=== PATIENT | female | born 1990 | race Hispanic/Latino ===

== ENCOUNTER 2018-04-01 15:02 | Inpatient (IN) | payer BC, OTHER ==
[2018-04-02] MEDS ORDERED: Ringers Lactate 1,000 ML IV PRN (03:20)
[2018-04-02] MEDS ORDERED: CARBOPROST TROME 250 MCG/ML IM PRN (03:25)
[2018-04-02] MEDS ORDERED: METHYLERGONOVINE 0.2MG/ML AMP IM PRN (03:25)
[2018-04-02 03:53] LABS: Urine Appearance CLEAR; Urine Bilirubin NEGATIVE (NEG); Urine Blood NEGATIVE (NEG); Urine Color YELLOW; Urine Glucose NEGATIVE (NEG); Urine Protein NEGATIVE (NEG); Urine Specific Gravity <=1.005 (1.005-1.030); Urine Urobilinogen 0.2 mg/dL (0.2-1.0); Urine pH 6.5 (5.0-7.0)
[2018-04-02] MEDS ORDERED: CEFAZOLIN 2 GM in NA CHLORIDE 0.9% 100 ML IVPB SCH (04:00)
[2018-04-02 04:01] LABS: Urine Microscopic Reflex NO UMIC
[2018-04-02 04:11] VITALS: BMI 35.5
[2018-04-02] MEDS ORDERED: Ringers Lactate 1,000 ML IV SCH (04:20)
[2018-04-02] MEDS ORDERED: BUTORPHANOL 1 MG/ML INJ IV ONE (04:51)
[2018-04-02] MEDS ORDERED: NA CIT/CITRIC AC 30 ML ORAL UDC PO ONE (06:00)
[2018-04-02] MEDS ORDERED: FAMOTIDINE 20 MG/2 ML VIAL IV ONE (06:00)
[2018-04-02] MEDS ORDERED: METOCLOPRAMIDE 10 MG/2mL INJ IV SCH (06:00)
[2018-04-02] MEDS ORDERED: CEFAZOLIN/SWI 2gm 2 GM/20 ML SYR ONE (06:51)
[2018-04-02] MEDS ORDERED: MORPHINE SULFATE/PF 1 MG/ML (10 ML AMP) ONE (07:22)
[2018-04-02] MEDS ORDERED: BUPIVACAINE 0.75% (PF) 2 ML SP ONE (07:22)
[2018-04-02] MEDS ORDERED: FENTANYL CITR 250 MCG/5 ML ONE (07:23)
[2018-04-02] MEDS ORDERED: LIDOCAINE 1% MPF 5 ML VIAL ONE (07:28)
[2018-04-02] MEDS ORDERED: OXYTOCIN 10 UNIT/ML ML IV ONE ×2 (07:30)
[2018-04-02] MEDS ORDERED: NS 0.9% VIAL 10 ML ONE (07:48)
[2018-04-02] MEDS ORDERED: Phenylephrine HCl 10 MG/ML 1 ML VIAL ONE (07:48)
[2018-04-02] MEDS ORDERED: BISACODYL 10 MG RECTAL SUPP RECT PRN (08:17)
[2018-04-02] MEDS ORDERED: ONDANSETRON 4 MG/2 ML VIAL IV PRN (08:17)
[2018-04-02] MEDS ORDERED: KETOROLAC 30 MG/ML INJ IM PRN (08:17)
[2018-04-02] MEDS ORDERED: Oxycodone HCl/Acetaminophen 1 TAB TAB PO PRN (08:17)
[2018-04-02] MEDS ORDERED: ONDANSETRON 4 MG (ODT) TAB PO PRN (08:17)
[2018-04-02] MEDS ORDERED: ACETAMINOPHEN 500 MG TAB PO PRN ×2 (08:17)
[2018-04-02] MEDS ORDERED: DIPHENHYDRAMINE 25 MG TAB/CAP PO PRN (08:17)
[2018-04-02] MEDS ORDERED: KETOROLAC 30 MG/ML INJ IV PRN (08:17)
[2018-04-02] MEDS: OXYTOCIN/LR 20 UNIT/1,000 ML BAG IV SCH ×2 (10:55→18:27)
[2018-04-02] MEDS ORDERED: CEFAZOLIN/SWI 2gm 2 GM/20 ML SYR IV ONE (16:00)
[2018-04-03] MEDS: IBUPROFEN 200 MG TAB PO PRN ×3 (07:16→20:48)
[2018-04-03] MEDS ORDERED: MAGNESIUM HYDROXIDE 8% 30 ML PO PRN (08:17)
[2018-04-03] MEDS: Oxycodone HCl/Acetaminophen 1 TAB TAB PO PRN ×3 (14:05→22:46)
[2018-04-04] MEDS: IBUPROFEN 200 MG TAB PO PRN (08:24)
[2018-04-04 08:35] VITALS: BP 115/66; TEMP 97.7
[2018-04-04] MEDS: Oxycodone HCl/Acetaminophen 1 TAB TAB PO PRN (09:45)
--- NOTE | 2018-04-05 04:58 | DS ---
Date of Discharge: 04/04/2018 Hospital Course: Yokasta Fish 28-year-old primigravida, 40 weeks 2 days, primary section lo w transverse cervical on maternal request, suspected macrosomia and full discussion prior to admissio n about options including vaginal delivery. Baby weighed 8 pounds 5 ounces. Apgars 9 and 9. Straig ht occiput posterior with nuchal cord. Spinal block anesthesia. 900 cc blood loss. Mild . Ancef 2 g preop and 8 hours postop 2 more grams for prophylaxis. Rh positive, immune to Rubella. Positive beta strep screen. Postoperatively afebrile, ambulating and voiding. Lochia is normal. W ill be dismissed later this morning. To report back to my office next week for followup. To report any temperature elevation of 100 degrees or greater, severe pain, heavy bleeding, or any other type o f abnormalities. Dismissed with tramadol for analgesia. She has had her Tdap and flu shots. No pos t spinal block problems. Final Diagnoses: Intrauterine gestation, 40 weeks 2 days, maternal request for section, odette pected macrosomia. Occiput posterior, nuchal cord. Mild uterine . Positive beta st rep screen prior to delivery. JAGDEEP/JOSE ALEJANDRO Voice ID: [id number] Report ID: [id number]
--- NOTE | 2018-04-10 12:12 | PREOPHP ---
Date of Admission: 04/02/2018 History Of Present Illness: Yokasta Fish is a 28-year-old primigravida, 40 weeks 2 days, with suspec gino macrosomia, although ultrasound demonstrated baby they said was 8 pounds, 11 ounces plus or minus 1 pound, 5 ounces. Unfavorable cervix. Vertex presenting. Patient requested sectio n. Full preoperative counseling concerning procedure and possible complications including infection, blood loss, anesthetic complications, injury to bladder, bowel, ureter, postoperative complications, clots in the legs, and pneumonia. The patient knows that if she has a she probably will bullock ve further cesareans in the future and this could result in complications. Patient also knows that t he ability of ultrasound to adequately and correctly predict weight could vary as much as 1 pound and 5 ounces as stated. Family History: Noncontributory. Allergies: SHE HAS NO ALLERGIES. Physical Examination: HEENT: Clear. Pupils equal, round, and reactive to light and accommodation. Conjunctivae well perf used. No oral, lingual, or buccal lesions. Chest and Lungs: Clear. Heart: Without murmurs, thrills, heaves, or rubs. Extremities: Clear without edema, cyanosis, or clubbing. : Cervix unfavorable. Estimated weight by my clinical exam was 8.5 pounds plus or minus 1 pound. The patient request ed and we will proceed. JAGDEEP/JOSE ALEJANDRO Voice ID: [id number]
--- NOTE | 2018-04-10 18:29 | OP ---
Surgeon: Jericho Aponte MD Indications: A 28-year-old primigravida, 40 weeks 2 days, suspected macrosomia. Although, pat ient knew that the ability of ultrasound correctly estimated weight could vary by as much as 1 pound 5 ounces. Baby thought to be about 8 pounds 11 ounces by ultrasound. Slightly smaller by my clinica l estimate. Full preoperative counseling concerning procedure and infection, blood loss, anesthetic complications, injury to bladder, bowel, ureter, postop complications, clots in legs, and pneumonia. The patient knows fully well this does not constitute all the possible problems that could occur dur ing or following surgery. Procedure: Spinal block anesthesia was performed. Timeout was performed. The patient was prepped a nd draped. Pfannenstiel incision was created. Incision was carried to the fascia. The fascia was i ncised and incision carried transversely bilaterally. Anterior fascial plane was developed with both blunt and sharp dissection. The underlying rectus muscle was . The perineum entered blunt ly. Low-transverse uterine incision created. An 8 pound 5 ounce baby girl was delivered without dif ficulties. Apgars 9 and 9. Straight occiput posterior with the nuchal cord. The placenta removed m anually. Uterus cleared of clot and blood and exteriorized. Cervical os was dilated with ring clamp . Uterus closed with a running-locked stitch of 1 chromic followed by 1-2 [id number] stitches a long the suture line for complete hemostasis. Estimated blood loss 900 cc. Mild uterine hypotonus, 0.2 mg of Methergine IM. The patient had been given 2 g of Ancef preoperatively. After cleaning the gutters, the uterus was reinspected, no further bleeding was seen. The muscles were reapproximated using interrupted sutures of 0 Vicryl. The fascia was closed with 1 Vicryl running from either angle to the midline. Subcutaneous tissue was closed with 2-0 plain running stitch. Absorbable ryan p laced and then metal ryan. The patient tolerated all procedures well. She was transferred back t o her room in good condition. Final Diagnoses: Term intrauterine 40 weeks 2 days, suspected macrosomia. Maternal request a section. Spinal block anesthesia. Mild uterine hypotonus. NBC/MODL Voice ID: [id number] Report ID: [id number]
--- NOTE | 2018-04-15 09:11 | PREOPHP ---
Date of Admission: 04/02/2018 History and physical, says it has not been dictated, it has; operative report, says it has not been d ictated, it has. It might be under the wrong numbers, but please look at the reports and the things that had been dictated and corrected because I have done both the requested. JAGDEEP/JOSE ALEJANDRO Voice ID: [id number]
== END 2018-04-04 10:40 | disposition home or self-care (01) | DRG 788 ==
LOC: 2ND-WC 04-02 03:12
PROVIDERS: ADMIT Specialist; ATTEND Specialist
PROC: 10D00Z1 Extraction of Products of Conception, Low, Open Approach (ICD-10-PCS; principal; 2018-04-02 07:30)
DX: O99.824 Streptococcus B carrier state complicating childbirth (principal); O69.81X0 Labor and delivery complicated by cord around neck, without compression, not applicable or unspecified; O62.2 Other uterine inertia; Z3A.40 40 weeks gestation of pregnancy; Z37.0 Single live birth; Z23 Encounter for immunization
CPT/HCPCS: 36415; 76805; 81003; 85014; 85025; 85610; 85730; 86850; 86900; 86901; 88307; 99218; J0595; J0690; J2210; J2370; J2405; J2590; J2765; J3010

== ENCOUNTER 2018-07-10 15:09 | Emergency (ER) | payer BC, OTHER ==
--- OUTSIDE RECORDS SUMMARY | 2018-07-10 15:13 | XMS REPORT ---
:1990 [facility] Address [address] [place] [address] Dr. Hoover [address] [place] [id number] Care Team Providers Name Role Phone Unavailable Unavailable Unavailable Problems This patient has no known problems. Allergies, Adverse Reactions, Alerts This patient has no known allergies or adverse reactions. Medications This patient has no known medications.
--- NOTE | 2018-07-10 16:15 | EDPHYS ---
Physician Documentation [facility] Name: Yokasta Fish Age: 28 yrs Sex: Female : 1990 Arrival Date: 07/10/2018 Time: 15:11 Bed 27 Private MD: Alexandre Ramirez T ED Physician Marcio Lacy HPI: 07/10 17:09 This 28 yrs old Female presents to ER via Ambulatory with complaints of jr8 Swollen Breast. 17:09 Onset: The symptoms/episode began/occurred acutely, today. Associated signs and jr8 symptoms: Pertinent positives: pain. Modifying factors: The patient symptoms are alleviated by nothing, the patient symptoms are aggravated by movement, stimulation. The patient has not experienced similar symptoms in the past. The patient has not recently seen a physician. Patient currently pumping. Has 12 week old child. Started to have swollen breast early this morning that has worsened throughout the day. Tender to touch and to pump. No purulent or bloody nipple discharge . 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 - Social history:: Smoking status: Patient/guardian denies using tobacco. - Ebola Screening: : Patient denies travel to an Ebola-affected area in the 21 days before illness onset. ROS: 17:09 Eyes: Negative for injury, pain, redness, and discharge, ENT: Negative for injury, jr8 pain, and discharge, Neck: Negative for injury, pain, and swelling, Cardiovascular: Negative for chest pain, palpitations, and edema, Respiratory: Negative for shortness of breath, cough, wheezing, and pleuritic chest pain, Abdomen/GI: Negative for abdominal pain, nausea, vomiting, diarrhea, and constipation, Back: Negative for injury and pain, MS/Extremity: Negative for injury and deformity, Skin: Negative for injury, rash, and discoloration, Neuro: Negative for headache, weakness, numbness, tingling, and seizure. Exam: 17:09 Eyes: Pupils equal round and reactive to light, extra-ocular motions intact. Lids and jr8 lashes normal. Conjunctiva and sclera are non-icteric and not injected. Cornea within normal limits. Periorbital areas with no swelling, redness, or edema. ENT: Nares patent. No nasal discharge, no septal abnormalities noted. Tympanic membranes are normal and external auditory canals are clear. Oropharynx with no redness, swelling, or masses, exudates, or evidence of obstruction, uvula midline. Mucous membranes moist. Neck: Trachea midline, no thyromegaly or masses palpated, and no cervical lymphadenopathy. Supple, full range of motion without nuchal rigidity, or vertebral point tenderness. No Meningismus. Cardiovascular: Regular rate and rhythm with a normal S1 and S2. No gallops, murmurs, or rubs. Normal PMI, no JVD. No pulse deficits. Respiratory: Lungs have equal breath sounds bilaterally, clear to auscultation and percussion. No rales, rhonchi or wheezes noted. No increased work of breathing, no retractions or nasal flaring. Abdomen/GI: Soft, non-tender, with normal bowel sounds. No distension or tympany. No guarding or rebound. No evidence of tenderness throughout. Back: No spinal tenderness. No costovertebral tenderness. Full range of motion. Skin: Warm, dry with normal turgor. Normal color with no rashes, no lesions, and no evidence of cellulitis. MS/ Extremity: Pulses equal, no cyanosis. Neurovascular intact. Full, normal range of motion. Neuro: Awake and alert, GCS 15, oriented to person, place, time, and situation. Cranial nerves II-XII grossly intact. Motor strength 5/5 in all extremities. Sensory grossly intact. Cerebellar exam normal. Normal gait. 17:09 Chest/axilla: Inspection: normal, Palpation: is normal, Axilla: are normal, no abscess, no cellulitis, no mass, no palpable nodes, no rash, Breasts: right breast larger then left. Tender from the 7 o'clock to 11 o'clock position of breast with increased breast tissue density. No active nipple discharge when squeezed. No erythema or areola abnormality . Vital Signs: 15:30 BP 99 / 72; Pulse 117; Resp 18; Temp 97.2(TE); Pulse Ox 97% on R/A; Weight 73.48 kg tw2 (R); Height 5 ft. 1 in. (154.94 cm); Pain 8/10; 16:15 BP 101 / 70; Pulse 112; Resp 19; Pulse Ox 98% on R/A; ca1 15:30 Body Mass Index 30.61 (73.48 kg, 154.94 cm) tw2 MDM: 15:47 Patient medically screened. jr8 16:13 Data reviewed: vital signs, nurses notes, and as a result, I will discharge patient. jr8 Data interpreted: Pulse oximetry: on room air is 97 %. Interpretation: normal. Counseling: I had a detailed discussion with the patient and/or guardian regarding: the historical points, exam findings, and any diagnostic results supporting the discharge/admit diagnosis, the need for outpatient follow up, an OB/Gyne specialist, to return to the emergency department if symptoms worsen or persist or if there are any questions or concerns that arise at home. 17:09 ED course: Discussed with patient diagnosis of clogged mild ducts vs. early mastitis. jr8 That I want her to continue to pump. Warm compress as needed. Will start on antibiotics. Need to f/u with human projectile . Administered Medications: No medications were administered Disposition: 07/11 08:03 Co-signature as Attending Physician, Marcio Lacy MD I agree with the assessment and kdr plan of care. Disposition: 07/10/18 16:15 Discharged to Home. Impression: Nonpurulent mastitis associated with . - Condition is Stable. - Discharge Instructions: Challenges and Solutions, Mastitis, and Mastitis. - Prescriptions for Augmentin 875- 125 mg Oral Tablet - take 1 tablet by ORAL route every 12 hours for 10 days; 20 tablet. - Medication Reconciliation Form, Thank You Letter, Antibiotic Education, Prescription Opioid Use form. - Follow up: Private Physician; When: 2 - 3 days; Reason: Recheck today's complaints, Continuance of care, Re-evaluation by your physician. - Problem is new. - Symptoms have improved. Signatures: Marcio Lacy MD MD [facility] Breezy Jauregui PA PA jr8 Shelia Reed RN RN tw2 Tri Cooper RN RN ca1 Corrections: (The following items were deleted from the chart) 07/10 16:34 16:15 07/10/2018 16:15 Discharged to Home. Impression: Nonpurulent mastitis associated ca1 with . Condition is Stable. Forms are Medication Reconciliation Form, Thank You Letter, Antibiotic Education, Prescription Opioid Use. Follow up: Private Physician; When: 2 - 3 days; Reason: Recheck today's complaints, Continuance of care, Re-evaluation by your physician. Problem is new. Symptoms have improved. jr8
--- NOTE | 2018-07-10 16:15 | ER ---
Nurse's Notes [facility] Name: Yokasta Fish Age: 28 yrs Sex: Female : 1990 Arrival Date: 07/10/2018 Time: 15:11 Bed 27 Private MD: Alexandre Ramirez T Diagnosis: Nonpurulent mastitis associated with Presentation: 07/10 15:31 Presenting complaint: Patient states: about 2 am my RIGHT breast started hurting, i am tw2 pumping and i tried to squeezed it to get some milk out but on the outside it is not letting the milk out. Transition of care: patient was not received from another setting of care. Onset of symptoms was July 10, 2018. Risk Assessment: Do you want to hurt yourself or someone else? Patient reports no desire to harm self or others. Initial Sepsis Screen: Does the patient meet any 2 criteria? No. Patient's initial sepsis screen is negative. Does the patient have a suspected source of infection? No. Patient's initial sepsis screen is negative. Care prior to arrival: None. 15:31 Method Of Arrival: Ambulatory tw2 15:31 Acuity: CANDE 4 tw2 Triage Assessment: 15:33 General: Appears in no apparent distress. well groomed, Behavior is calm, cooperative, tw2 appropriate for age. Pain: Complains of pain in right breast. 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 - Social history:: Smoking status: Patient/guardian denies using tobacco. - Ebola Screening: : Patient denies travel to an Ebola-affected area in the 21 days before illness onset. Screenin:40 Abuse screen: Denies threats or abuse. Denies injuries from another. Nutritional ca1 screening: No deficits noted. Tuberculosis screening: No symptoms or risk factors identified. Fall Risk None identified. Assessment: 15:40 General: Appears in no apparent distress. comfortable, Behavior is calm, cooperative, ca1 appropriate for age. Pain: Complains of pain in anterior aspect of right upper chest and right breast Pain does not radiate. Pain currently is 5 out of 10 on a pain scale. Pain began 1 day ago. Neuro: Level of Consciousness is awake, alert, obeys commands, Oriented to person, place, time, situation. Cardiovascular: Heart tones S1 S2 present Capillary refill < 3 seconds Patient's skin is warm and dry. Respiratory: Airway is patent Respiratory effort is even, unlabored, Respiratory pattern is regular, symmetrical, Breath sounds are clear bilaterally. GI: No signs and/or symptoms were reported involving the gastrointestinal system. : No signs and/or symptoms were reported regarding the genitourinary system. EENT: No signs and/or symptoms were reported regarding the EENT system. Derm: Skin is intact, is healthy with good turgor, Skin is pink, warm \T\ dry. Musculoskeletal: Circulation, motion, and sensation intact. Capillary refill < 3 seconds. 16:00 Reassessment: Patient appears in no apparent distress at this time. Patient is alert, ca1 oriented x 3, equal unlabored respirations, skin warm/dry/pink. MARQUEZ Haro with me at bedside perform PE on breast. Vital Signs: 15:30 BP 99 / 72; Pulse 117; Resp 18; Temp 97.2(TE); Pulse Ox 97% on R/A; Weight 73.48 kg tw2 (R); Height 5 ft. 1 in. (154.94 cm); Pain 8/10; 16:15 BP 101 / 70; Pulse 112; Resp 19; Pulse Ox 98% on R/A; ca1 15:30 Body Mass Index 30.61 (73.48 kg, 154.94 cm) tw2 ED Course: 15:11 Patient arrived in ED. dl4 15:11 Alexandre Ramirez MD is Private Physician. dl4 15:32 Triage completed. tw2 15:32 Arm band placed on. tw2 15:35 [facility]reezy Jauregui [facility]. jr8 15:35 Marcio Lacy MD is Attending Physician. jr8 15:40 Patient has correct armband on for positive identification. Placed in gown. Bed in low ca1 position. Call light in reach. Pulse ox on. NIBP on. 15:40 No provider procedures requiring assistance completed. Patient did not have IV access ca1 during this emergency room visit. 15:48 Umer Greer, RN is Primary Nurse. sg Administered Medications: No medications were administered Outcome: 16:15 Discharge ordered by . valarie 16:33 Discharged to home ambulatory, with family. ca1 16:33 Condition: stable 16:33 Discharge instructions given to patient, Instructed on discharge instructions, follow up and referral plans. medication usage, Demonstrated understanding of instructions, follow-up care, medications, Prescriptions given X 1. 16:34 Patient left the ED. ca1 Signatures: Umer Greer RN RN Breezy Boo PA PA jr8 Shelia Reed RN RN tw2 Alexandre Moreno dl4 Tri Cooper RN RN ca1 Corrections: (The following items were deleted from the chart) 16:33 16:32 Reassessment: Patient appears in no apparent distress at this time. Patient is ca1 alert, oriented x 3, equal unlabored respirations, skin warm/dry/pink. MARQUEZ Haro with me at bedside perform PE on breast. ca1
[2018-07-10 16:38] VITALS: TEMP 97.2
[2018-07-10 16:39] VITALS: BP 101/70; O2SAT 98
== END 2018-07-10 16:34 | disposition home or self-care (01) ==
LOC: ER 15:09
DX: O91.23 Nonpurulent mastitis associated with lactation (principal)
CPT/HCPCS: 99283

== ENCOUNTER 2019-05-21 08:55 | Emergency (ER) | payer OTHER, SELFPAY ==
--- OUTSIDE RECORDS SUMMARY | 2019-05-21 08:57 | XMS REPORT ---
:1990 [facility] Address [address] [place] [address] Dr. Hoover [address] [place] [id number] Care Team Providers Name Role Phone Unavailable Unavailable Unavailable Problems This patient has no known problems. Allergies, Adverse Reactions, Alerts This patient has no known allergies or adverse reactions. Medications This patient has no known medications.
--- NOTE | 2019-05-21 11:26 | ER ---
Nurse's Notes [facility] Name: Yokasta Fish Age: 29 yrs Sex: Female : 1990 Arrival Date: 05/21/2019 Time: 08:58 Bed 14 Private MD: Diagnosis: Acute pharyngitis;Malaise and fatigue Presentation: 05/21 09:09 Presenting complaint: Patient states: Fatigue, body aches and sore throat that began ss yesterday. Transition of care: patient was not received from another setting of care. Onset of symptoms was May 20, 2019. Risk Assessment: Do you want to hurt yourself or someone else? Patient reports no desire to harm self or others. Initial Sepsis Screen: Does the patient meet any 2 criteria? No. Patient's initial sepsis screen is negative. Does the patient have a suspected source of infection? No. Patient's initial sepsis screen is negative. Care prior to arrival: None. 09:09 Acuity: CANDE 4 ss 09:09 Method Of Arrival: Ambulatory ss Triage Assessment: 09:10 General: Appears in no apparent distress. comfortable, Behavior is cooperative, bp appropriate for age, anxious. Pain: Denies pain. EENT: Reports pain when swallowing. Neuro: No deficits noted. Cardiovascular: Rhythm is sinus tachycardia. Respiratory: No deficits noted. GI: Reports nausea. : No signs and/or symptoms were reported regarding the genitourinary system. Derm: No deficits noted. Musculoskeletal: No deficits noted. Historical: - Allergies: 09:17 No Known Allergies; ss - Home Meds: 09:17 None [Active]; ss - PMHx: 09:17 Ovarian cyst; ss - Immunization history:: Adult Immunizations up to date. - Social history:: Smoking status: Patient/guardian denies using tobacco. - Ebola Screening: : Patient denies exposure to infectious person Patient denies travel to an Ebola-affected area in the 21 days before illness onset. Screenin:03 Abuse screen: Denies threats or abuse. Denies injuries from another. Nutritional bp screening: No deficits noted. Tuberculosis screening: No symptoms or risk factors identified. Fall Risk None identified. Assessment: 09:10 General: SEE TRIAGE NOTE. GI: Abdomen is non-distended. bp 10:33 Reassessment: NO ACUTE DISTRESS, VS STABLE ON MONITOR. RESULTS PENDING. bp 12:14 Reassessment: PT D/C HOME AMBULATORY WITH FAMILY, DX WITH VIRAL PHARYNGITIS. bp Vital Signs: 09:17 BP 118 / 67; Pulse 110; Resp 18; Temp 98.1(TE); Pulse Ox 98% on R/A; Weight 77.11 kg; Height 5 ft. 1 in. (154.94 cm); Pain 7/10; 10:33 BP 99 / 65; Pulse 92; Resp 16; Pulse Ox 98% ; bp 12:00 BP 107 / 69; Pulse 89; Resp 17; Temp 98.5; Pulse Ox 99% ; bp 09:17 Body Mass Index 32.12 (77.11 kg, 154.94 cm) ED Course: 08:58 Patient arrived in ED. ag5 09:03 Windy Farrar FNP-C is [facility]. snw 09:03 Rayray Bang MD is Attending Physician. snw 09:14 Antonino Mendes, RN is Primary Nurse. bp 09:17 Triage completed. ss 09:17 Arm band placed on right wrist. ss 09:57 Flu and/or RSV swab sent to lab. Strep swab sent to lab. ca1 10:03 Patient has correct armband on for positive identification. Bed in low position. Call bp light in reach. Side rails up X2. 12:15 No provider procedures requiring assistance completed. Patient did not have IV access bp during this emergency room visit. Administered Medications: No medications were administered Outcome: 11:25 Discharge ordered by . snw 12:15 Discharged to home ambulatory, with family. bp 12:15 Condition: stable 12:15 Discharge instructions given to patient, Instructed on discharge instructions, follow up and referral plans. medication usage, Demonstrated understanding of instructions, follow-up care, medications, Prescriptions given X 1. 12:16 Patient left the ED. bp Signatures: Windy Farrar FNP-C OFFICE MACHINE SERVICE SUPERVISOR-[employer] Lissette Munoz RN RN Antonino Mendes, Tri Lewis RN, RN RN ca1 [place], Ajare ag5
--- NOTE | 2019-05-21 11:26 | EDPHYS ---
Physician Documentation [facility] Name: Yokasta Fish Age: 29 yrs Sex: Female : 1990 Arrival Date: 05/21/2019 Time: 08:58 Bed 14 Private MD: ED Physician Rayray Bang HPI: 05/21 10:00 This 29 yrs old Female presents to ER via Ambulatory with complaints of snw Nausea, Sore Throat, General Weakness. 10:01 The patient or guardian reports flu symptoms, arthralgias, low-grade fever, myalgias, snw no appetite. Onset: The symptoms/episode began/occurred suddenly, yesterday. Modifying factors: The symptoms are alleviated by nothing. Associated signs and symptoms: Pertinent positives: sore throat. Severity of symptoms: At their worst the symptoms were moderate. The patient has not experienced similar symptoms in the past. The patient has not recently seen a physician. pt states she doesn't get periods. Historical: - Allergies: 09:17 No Known Allergies; ss - Home Meds: 09:17 None [Active]; ss - PMHx: 09:17 Ovarian cyst; ss - Immunization history:: Adult Immunizations up to date. - Social history:: Smoking status: Patient/guardian denies using tobacco. - Ebola Screening: : Patient denies exposure to infectious person Patient denies travel to an Ebola-affected area in the 21 days before illness onset. ROS: 09:57 Eyes: Negative for injury, pain, redness, and discharge, ENT: Negative for injury and snw discharge, sore throat Neck: Negative for injury, pain, and swelling. 09:57 Cardiovascular: Negative for chest pain, palpitations, and edema, Respiratory: Negative for shortness of breath, cough, wheezing, and pleuritic chest pain, Abdomen/GI: Negative for abdominal pain, nausea, vomiting, diarrhea, and constipation, Back: Negative for injury and pain, : Negative for injury, bleeding, discharge, and swelling, MS/Extremity: Negative for injury and deformity, Skin: Negative for injury, rash, and discoloration, Neuro: Negative for headache, weakness, numbness, tingling, and seizure. 09:57 Constitutional: Positive for body aches, fatigue, malaise. Exam: 09:45 Head/Face: Normocephalic, atraumatic. Eyes: Pupils equal round and reactive to light, snw extra-ocular motions intact. Lids and lashes normal. Conjunctiva and sclera are non-icteric and not injected. Cornea within normal limits. Periorbital areas with no swelling, redness, or edema. ENT: Nares patent. No nasal discharge, no septal abnormalities noted. Tympanic membranes are normal and external auditory canals are clear. Oropharynx with no redness, swelling, or masses, exudates, or evidence of obstruction, uvula midline. Mucous membranes moist. 09:45 Chest/axilla: Normal chest wall appearance and motion. Nontender with no deformity. No lesions are appreciated. 09:45 Respiratory: Lungs have equal breath sounds bilaterally, clear to auscultation and percussion. No rales, rhonchi or wheezes noted. No increased work of breathing, no retractions or nasal flaring. Abdomen/GI: Soft, non-tender, with normal bowel sounds. No distension or tympany. No guarding or rebound. No evidence of tenderness throughout. Back: No spinal tenderness. No costovertebral tenderness. Full range of motion. Skin: Warm, dry with normal turgor. Normal color with no rashes, no lesions, and no evidence of cellulitis. MS/ Extremity: Pulses equal, no cyanosis. Neurovascular intact. Full, normal range of motion. Neuro: Awake and alert, GCS 15, oriented to person, place, time, and situation. Cranial nerves II-XII grossly intact. Motor strength 5/5 in all extremities. Sensory grossly intact. Cerebellar exam normal. Normal gait. Psych: Awake, alert, with orientation to person, place and time. Behavior, mood, and affect are within normal limits. 09:45 Constitutional: The patient appears alert, awake, uncomfortable. 09:45 Neck: External neck: is normal, Thyroid: appears normal, Trachea: is midline with no obvious abnormalities, ROM/movement: is normal, Lymph nodes: lymphadenopathy is appreciated, anterior cervical nodes. 09:45 Cardiovascular: Rate: tachycardic. Vital Signs: 09:17 BP 118 / 67; Pulse 110; Resp 18; Temp 98.1(TE); Pulse Ox 98% on R/A; Weight 77.11 kg; ss Height 5 ft. 1 in. (154.94 cm); Pain 7/10; 10:33 BP 99 / 65; Pulse 92; Resp 16; Pulse Ox 98% ; bp 12:00 BP 107 / 69; Pulse 89; Resp 17; Temp 98.5; Pulse Ox 99% ; bp 09:17 Body Mass Index 32.12 (77.11 kg, 154.94 cm) ss MDM: 09:03 Patient medically screened. [facility] 11:26 Data reviewed: vital signs, nurses notes. Data interpreted: Pulse oximetry: on room air snw is 98 %. Interpretation: normal. Counseling: I had a detailed discussion with the patient and/or guardian regarding: the historical points, exam findings, and any diagnostic results supporting the discharge/admit diagnosis, lab results, the need for outpatient follow up, to return to the emergency department if symptoms worsen or persist or if there are any questions or concerns that arise at home. Special discussion: Based on the history and exam findings, there is no indication for further emergent testing or inpatient evaluation. I discussed with the patient/guardian the need to see the primary care provider for further evaluation of the symptoms. 05/21 09:39 Order name: Flu; Complete Time: 11:24 snw 05/21 09:39 Order name: Strep; Complete Time: 11:24 snw 05/21 10:59 Order name: Throat Culture EDMS Administered Medications: No medications were administered Disposition: 16:43 Co-signature as Attending Physician, Rayray Bang MD I agree with the assessment and [facility] plan of care. Disposition: 05/21/19 11:25 Discharged to Home. Impression: Acute pharyngitis, Malaise and fatigue. - Condition is Stable. - Discharge Instructions: Fever, Adult, Pharyngitis, Fatigue, Rehydration, Adult. - Prescriptions for promethazine 25 mg Oral Tablet - take 1 tablet by ORAL route every 6 hours As needed; 20 tablet. - Work release form, Family Work Release, Medication Reconciliation Form, Thank You Letter, Antibiotic Education, Prescription Opioid Use form. - Follow up: Private Physician; When: 2 - 3 days; Reason: Recheck today's complaints, Continuance of care, Re-evaluation by your physician. Follow up: Emergency Department; When: As needed; Reason: Worsening of condition. Signatures: Dispatcher [employer] Rayray Phoenix MD MD cha Therrien, Shelly, COMMUNITY DEVELOPMENT AIDE-C COMMUNITY DEVELOPMENT AIDE-Csnw Lissette Munoz, RN RN ss Antonino Mendes, RN RN bp Corrections: (The following items were deleted from the chart) 10:01 10:00 The patient presents to the emergency department with snw snw 12:16 11:25 05/21/2019 11:25 Discharged to Home. Impression: Acute pharyngitis; Malaise and bp fatigue. Condition is Stable. Forms are Medication Reconciliation Form, Thank You Letter, Antibiotic Education, Prescription Opioid Use. Follow up: Private Physician; When: 2 - 3 days; Reason: Recheck today's complaints, Continuance of care, Re-evaluation by your physician. Follow up: Emergency Department; When: As needed; Reason: Worsening of condition. snw
[2019-05-21 12:33] VITALS: BP 107/69; TEMP 98.5; O2SAT 99
== END 2019-05-21 12:16 | disposition home or self-care (01) ==
LOC: ER 08:55
DX: J02.9 Acute pharyngitis, unspecified (principal); R53.81 Other malaise; R53.83 Other fatigue
CPT/HCPCS: 87070; 87081; 87804; 99284

== ENCOUNTER 2020-08-10 20:32 | Emergency (ER) | payer SELFPAY ==
--- OUTSIDE RECORDS SUMMARY | 2020-08-10 20:35 | XMS REPORT | Continuity of Care Document ---
:1990 Author Organization Formerly [facility] t Address [address] [place] [address] Care Team Providers Name Role Phone Devan Herrera DO Attending Clinician Claude Richardson Attending Clinician Problems This patient has no known problems. Allergies, Adverse Reactions, Alerts This patient has no known allergies or adverse reactions. Medications This patient has no known medications. Procedures This patient has no known procedures. Encounters Start End Encounter Admission Attending Care Care Encounter Source Date/Time Date/Time Type Type Clinicians Facility Department ID 2020-07-27 2020-07-27 Patient ELISEO Herrera [id number] 00:00:00 00:00:00 Outreach [facility] [id number] Devan [facility] [id number] [place] [id number] 2020-04-08 2020-04-08 Telephone ELISEO Prieto [id number] 00:00:00 00:00:00 Steve Arce RESPIRATORY CARE SPECIALIST [id number] [facility] [id number] MATERNAL [id number] & CHILD [address] [place] [address] Results This patient has no known results.
[2020-08-10 21:28] LABS: Absolute Lymphocytes (CBC) 1.3 K/uL (0.7-4.9); Basophils % 0.4 % (0-1.3); Hematocrit 40.5 % (36.0-45.0); Lymphocytes % 9.5 % (15.3-44.8); MPV 9.8 fL (7.6-11.3); RBC Red Blood Cell Count 4.78 M/uL (3.86-4.86)
[2020-08-10 21:30] LABS: Urine Blood Negative (Negative); Urine Glucose Negative (Negative); Urine Protein Negative (Negative); Urine Specific Gravity >=1.030 (1.005-1.030)
[2020-08-10] MEDS ORDERED: ONDANSETRON 4 MG/2 ML VIAL ONE ×2 (21:33→23:15)
[2020-08-10] MEDS ORDERED: NA CHLORIDE 0.9% 1,000 ML ONE ×2 (21:33→23:16)
[2020-08-10] MEDS ORDERED: MORPHINE 4 MG/ML SYR ONE (21:33)
[2020-08-10 21:43] LABS: ALT/SGPT 24 U/L (12-78); AST/SGOT 17 U/L (15-37); Albumin 4.3 g/dL (3.4-5.0); Alkaline Phosphatase 107 U/L (45-117); BUN Blood Urea Nitrogen 14 mg/dL (7-18); Bicarbonate 26 mmol/L (21-32); Bilirubin Direct < 0.1 mg/dL (0-0.2); Bilirubin Total 0.3 mg/dL (0.2-1.0); Glucose Level 95 mg/dL (74-106); Lipase 87 U/L (73-393); Potassium 3.5 mmol/L (3.5-5.1); Protein, Total 8.5 g/dL (6.4-8.2); Sodium Level 139 mmol/L (136-145)
[2020-08-10 21:53] LABS: Urine Amorphous Sediment 1+ /HPF (NONE SEEN); Urine Bacteria 20-50 /HPF (<20); Urine Mucus 3+ /HPF (NONE SEEN); Urine RBC <5 /HPF (NONE SEEN)
[2020-08-10 21:54] LABS: Urine Specific Gravity/Preg >1.030 (1.005-1.030)
[2020-08-10 22:10] LABS: SARS-COV-2 RT PCR NEGATIVE (NEGATIVE)
[2020-08-10] MEDS ORDERED: DICYCLOMINE HCL 10 MG CAP ONE (23:15)
[2020-08-10] MEDS ORDERED: CEFTRIAXONE/SWI 1gm 1 GM/10 ML SYR ONE (23:28)
--- NOTE | 2020-08-10 23:45 | ER ---
Nurse's Notes [facility] Name: Yokasta Fish Age: 30 yrs Sex: Female : 1990 Arrival Date: 08/10/2020 Time: 20:36 Bed 4 Private MD: Diagnosis: Urinary tract infection, site not specified;Nausea and vomiting;Diarrhea, unspecified;Dehydration Presentation: 08/10 20:39 Chief complaint: Patient states: N/V/D with abdominal cramping for 1 day. No known ll1 fever. Coronavirus screen: Client denies travel out of the [place] in the last 14 days. diarrhea, fatigue, headache, nausea, vomiting. Client presents with at least one sign or symptom that may indicate coronavirus-19. Standard/surgical mask placed on the client. Ebola Screen: Patient denies travel to an Ebola-affected area in the 21 days before illness onset. Initial Sepsis Screen: Does the patient meet any 2 criteria? HR > 90 bpm. No. Patient's initial sepsis screen is negative. Does the patient have a suspected source of infection? Yes: Acute abdominal pain. Risk Assessment: Do you want to hurt yourself or someone else? Patient reports no desire to harm self or others. Onset of symptoms was August 10, 2020. 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 - Social history:: Smoking status: Patient denies any tobacco usage or history of. Screenin:06 Abuse screen: Denies threats or abuse. Denies injuries from another. Nutritional mg2 screening: No deficits noted. Tuberculosis screening: No symptoms or risk factors identified. Fall Risk IV access (20 points). Assessment: 21:06 General: Appears in no apparent distress. comfortable, Behavior is calm, cooperative. mg2 Pain: Complains of pain in abdomen Quality of pain is described as crampy. Neuro: Level of Consciousness is awake, alert, obeys commands, Oriented to person, place, time, situation. Cardiovascular: Capillary refill < 3 seconds Patient's skin is warm and dry. Respiratory: Airway is patent Respiratory effort is even, unlabored, Respiratory pattern is regular, symmetrical. GI: Reports cramping, nausea, vomiting. EENT: No signs and/or symptoms were reported regarding the EENT system. Derm: Skin is intact, is healthy with good turgor, Skin is pink, warm \T\ dry. normal. Musculoskeletal: Circulation, motion, and sensation intact. Capillary refill < 3 seconds. Vital Signs: 20:39 BP 113 / 70; Pulse 125; Resp 17; Temp 97.1; Pulse Ox 100% ; Weight 77.11 kg; Height 5 ll1 ft. 1 in. (154.94 cm); Pain 9/10; 22:37 BP 102 / 78; Pulse 98; Resp 18; Pulse Ox 100% on R/A; mg2 23:57 BP 110 / 60; Pulse 89; Resp 18; Temp 98; Pulse Ox 100% on R/A; mg2 20:39 Body Mass Index 32.12 (77.11 kg, 154.94 cm) ll1 ED Course: 20:36 Patient arrived in ED. am4 20:41 Triage completed. ll1 20:41 Arm band placed on. ll1 20:58 Miki Ibarra, HERB is PHCP. pm1 20:58 Rayray Bang MD is Attending Physician. pm1 21:06 Brandon Parisi, IDA is Primary Nurse. mg2 21:06 No provider procedures requiring assistance completed. mg2 21:07 Patient has correct armband on for positive identification. mg2 21:10 Inserted saline lock: 22 gauge in right antecubital area, using aseptic technique. mg2 Blood collected. 22:17 CT Abd/Pelvis - IV Contrast Only In Process Unspecified. EDMS 23:57 IV discontinued, intact, bleeding controlled, No redness/swelling at site. Pressure mg2 dressing applied. Administered Medications: 21:19 Drug: Zofran (Ondansetron) 4 mg Route: IVP; Site: right antecubital; mg2 22:38 Follow up: Response: No adverse reaction mg2 21:19 Drug: morphine 4 mg Route: IVP; Site: right antecubital; mg2 22:37 Follow up: Response: No adverse reaction mg2 21:20 Drug: NS 0.9% 1000 ml Route: IV; Rate: 1000 ml; Site: right antecubital; mg2 22:38 Follow up: Response: No adverse reaction; IV Status: Completed infusion; IV Intake: mg2 1000ml 23:01 Drug: Bentyl (dicyclomine) 20 mg Route: PO; 23:56 Follow up: Response: No adverse reaction mg2 23:03 Drug: NS 0.9% 1000 ml Route: IV; Rate: 1000 ml; Site: right antecubital; 23:56 Follow up: Response: No adverse reaction; IV Status: Completed infusion; IV Intake: mg2 1000ml 23:05 Drug: Zofran (Ondansetron) 4 mg Route: IVP; Site: right antecubital; 23:56 Follow up: Response: No adverse reaction mg2 23:13 Drug: Rocephin (cefTRIAXone) 1 grams Route: IV; Rate: calculated rate; Site: right antecubital; 23:56 Follow up: Response: No adverse reaction; IV Status: Completed infusion mg2 Intake: 22:38 IV: 1000ml; Total: 1000ml. mg2 23:56 IV: 1000ml; Total: 2000ml. mg2 Outcome: 23:44 Discharge ordered by . pm1 23:57 Discharged to home ambulatory, with family. mg2 23:57 Condition: stable 23:57 Discharge instructions given to patient, Instructed on discharge instructions, follow up and referral plans. medication usage, Demonstrated understanding of instructions, follow-up care, medications, Prescriptions given X 3. 23:58 Patient left the ED. mg2 Signatures: Dispatcher [employer] EDMS Miki Ibarra NP CLAIM INVESTIGATOR pm1 Esvin An RN RN Brandon Parisi RN RN [facility] Soha Haq RN RN [facility] Genie Bell am4 Corrections: (The following items were deleted from the chart) 22:38 22:37 Pulse 98bpm; Resp 18bpm; Pulse Ox 100% RA; mg2 mg2
--- NOTE | 2020-08-10 23:45 | EDPHYS ---
Physician Documentation [facility] Name: Yokasta Fish Age: 30 yrs Sex: Female : 1990 Arrival Date: 08/10/2020 Time: 20:36 Bed 4 Private MD: JUAREZ Physician Rayray Bang HPI: 08/10 22:09 This 30 yrs old Female presents to ER via Ambulatory with complaints of pm1 Nausea/Vomiting/Diarrhea, Weakness. 22:09 The patient presents to the emergency department with nausea, vomiting, diarrhea, pm1 abdominal pain. Onset: The symptoms/episode began/occurred today. Possible causes: unknown. The symptoms are aggravated by food , The symptoms are alleviated by nothing. Associated signs and symptoms: Pertinent positives: fever, cough, shortness of breath. Severity of symptoms: in the emergency department the symptoms have improved. The patient has not experienced similar symptoms in the past. The patient has not recently seen a physician. 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 - Social history:: Smoking status: Patient denies any tobacco usage or history of. ROS: 22:09 Eyes: Negative for injury, pain, redness, and discharge, ENT: Negative for injury, pm1 pain, and discharge, Neck: Negative for injury, pain, and swelling, Cardiovascular: Negative for chest pain, palpitations, and edema, Respiratory: Negative for shortness of breath, cough, wheezing, and pleuritic chest pain. 22:09 Back: Negative for injury and pain, : Negative for injury, bleeding, discharge, and swelling, MS/Extremity: Negative for injury and deformity, Skin: Negative for injury, rash, and discoloration, Neuro: Negative for headache, weakness, numbness, tingling, and seizure. 22:09 Constitutional: Positive for body aches, generalized weakness. 22:09 Abdomen/GI: Positive for abdominal pain, nausea, vomiting, and diarrhea. Exam: 22:09 Constitutional: This is a well developed, well nourished patient who is awake, alert, pm1 and in no acute distress. Head/Face: Normocephalic, atraumatic. Chest/axilla: Normal chest wall appearance and motion. Nontender with no deformity. No lesions are appreciated. Respiratory: Lungs have equal breath sounds bilaterally, clear to auscultation and percussion. No rales, rhonchi or wheezes noted. No increased work of breathing, no retractions or nasal flaring. 22:09 Back: No spinal tenderness. No costovertebral tenderness. Full range of motion. Skin: Warm, dry with normal turgor. Normal color with no rashes, no lesions, and no evidence of cellulitis. 22:09 MS/ Extremity: Pulses equal, no cyanosis. Neurovascular intact. Full, normal range of motion. 22:09 Cardiovascular: Rate: tachycardic, Rhythm: regular, Pulses: no pulse deficits are appreciated. 22:09 Abdomen/GI: Inspection: abdomen appears normal, Palpation: soft, in all quadrants, mild abdominal tenderness, in the left lower quadrant. 22:09 Neuro: Exam negative for acute changes, Orientation: is normal, Mentation: is normal, Motor: is normal, moves all fours. Vital Signs: 20:39 BP 113 / 70; Pulse 125; Resp 17; Temp 97.1; Pulse Ox 100% ; Weight 77.11 kg; Height 5 ll1 ft. 1 in. (154.94 cm); Pain 9/10; 22:37 BP 102 / 78; Pulse 98; Resp 18; Pulse Ox 100% on R/A; mg2 23:57 BP 110 / 60; Pulse 89; Resp 18; Temp 98; Pulse Ox 100% on R/A; mg2 20:39 Body Mass Index 32.12 (77.11 kg, 154.94 cm) ll1 MDM: 21:03 Patient medically screened. pm1 23:43 Data reviewed: vital signs. Data interpreted: Pulse oximetry: on room air is 100 %. pm1 Interpretation: normal. Counseling: I had a detailed discussion with the patient and/or guardian regarding: the historical points, exam findings, and any diagnostic results supporting the discharge/admit diagnosis, lab results, radiology results, the need for outpatient follow up, to return to the emergency department if symptoms worsen or persist or if there are any questions or concerns that arise at home. 08/10 21:06 Order name: Basic Metabolic Panel; Complete Time: 22:11 mg2 08/10 21:06 Order name: CBC with Diff; Complete Time: 21:37 mg2 08/10 21:06 Order name: Hepatic Function; Complete Time: 22:11 mg2 08/10 21:06 Order name: Lipase; Complete Time: 22:11 mg2 08/10 21:07 Order name: Urine Microscopic Only; Complete Time: 22:11 pm1 08/10 21:07 Order name: CT Abd/Pelvis - IV Contrast Only pm1 08/10 21:30 Order name: Urine Dipstick-Ancillary; Complete Time: 21:37 EDMS 08/10 21:30 Order name: Urine --Ancillary (enter results); Complete Time: 22:11 mw2 08/10 21:54 Order name: Urine Culture EDMS 08/10 22:11 Order name: COVID-19/FLU A+B; Complete Time: 22:49 EDMS 08/10 21:06 Order name: IV Saline Lock; Complete Time: 21:20 mg2 08/10 21:06 Order name: Labs collected and sent; Complete Time: 21:20 mg2 08/10 21:06 Order name: Urine Dipstick-Ancillary (obtain specimen); Complete Time: 21:20 mg2 08/10 21:06 Order name: Urine Test (obtain specimen); Complete Time: 21:20 mg2 Administered Medications: 21:19 Drug: Zofran (Ondansetron) 4 mg Route: IVP; Site: right antecubital; mg2 22:38 Follow up: Response: No adverse reaction mg2 21:19 Drug: morphine 4 mg Route: IVP; Site: right antecubital; mg2 22:37 Follow up: Response: No adverse reaction mg2 21:20 Drug: NS 0.9% 1000 ml Route: IV; Rate: 1000 ml; Site: right antecubital; mg2 22:38 Follow up: Response: No adverse reaction; IV Status: Completed infusion; IV Intake: mg2 1000ml 23:01 Drug: Bentyl (dicyclomine) 20 mg Route: PO; wh 23:56 Follow up: Response: No adverse reaction mg2 23:03 Drug: NS 0.9% 1000 ml Route: IV; Rate: 1000 ml; Site: right antecubital; wh 23:56 Follow up: Response: No adverse reaction; IV Status: Completed infusion; IV Intake: mg2 1000ml 23:05 Drug: Zofran (Ondansetron) 4 mg Route: IVP; Site: right antecubital; 23:56 Follow up: Response: No adverse reaction mg2 23:13 Drug: Rocephin (cefTRIAXone) 1 grams Route: IV; Rate: calculated rate; Site: right wh antecubital; 23:56 Follow up: Response: No adverse reaction; IV Status: Completed infusion mg2 Disposition: 08/11 06:40 Co-signature as Attending Physician, Rayray Bang MD I agree with the assessment and [facility] plan of care. Disposition: 08/10/20 23:44 Discharged to Home. Impression: Urinary tract infection, site not specified, Nausea and vomiting, Diarrhea, unspecified, Dehydration. - Condition is Stable. - Discharge Instructions: Food Choices to Help Relieve Diarrhea, Adult, Dehydration, Adult, Diarrhea, Adult, Nausea and Vomiting, Adult, Urinary Tract Infection, Adult, Rehydration, Adult. - Prescriptions for Zofran ODT 4 mg Oral tablet,disintegrating - place 1 tablet by TRANSLINGUAL route every 8 hours As needed; 12 tablet. Bentyl 20 mg Oral Tablet - take 1 tablet by ORAL route every 6 hours As needed; 20 tablet. Bactrim DS 800- 160 mg Oral Tablet - take 1 tablet by ORAL route every 12 hours for 10 days; 20 tablet. - Medication Reconciliation Form, Thank You Letter, Antibiotic Education, Prescription Opioid Use form. - Follow up: Emergency Department; When: As needed; Reason: Worsening of condition. Follow up: Private Physician; When: 2 - 3 days; Reason: Recheck today's complaints, Continuance of care, Re-evaluation by your physician. - Problem is new. - Symptoms have improved. Signatures: Dispatcher [employer] EDRayray Lynne MD MD [facility] Miki Ibarra, HERB MATERIALS INSPECTOR pm1 Esvin An RN RN Brandon Parisi, RN RN mg2 Soha Haq, IDA RN ll1 Corrections: (The following items were deleted from the chart) 08/10 21:30 21:09 CORONAVIRUS+MR.LAB.BRZ ordered. EDNM EDNM 21:30 21:09 Influenza Screen (A \T\ B)+BA.LAB.BRZ ordered. EDNM EDMS 23:44 23:44 08/10/2020 23:44 Discharged to Home. Impression: Urinary tract infection, site pm1 not specified; Nausea and vomiting; Diarrhea, unspecified. Condition is Stable. Forms are Medication Reconciliation Form, Thank You Letter, Antibiotic Education, Prescription Opioid Use. Follow up: Emergency Department; When: As needed; Reason: Worsening of condition. Follow up: Private Physician; When: 2 - 3 days; Reason: Recheck today's complaints, Continuance of care, Re-evaluation by your physician. Problem is new. Symptoms have improved. pm1 23:58 23:44 08/10/2020 23:44 Discharged to Home. Impression: Urinary tract infection, site mg2 not specified; Nausea and vomiting; Diarrhea, unspecified; Dehydration. Condition is Stable. Forms are Medication Reconciliation Form, Thank You Letter, Antibiotic Education, Prescription Opioid Use. Follow up: Emergency Department; When: As needed; Reason: Worsening of condition. Follow up: Private Physician; When: 2 - 3 days; Reason: Recheck today's complaints, Continuance of care, Re-evaluation by your physician. Problem is new. Symptoms have improved. pm1
[2020-08-11 01:13] VITALS: O2SAT 100
[2020-08-11 01:16] VITALS: BP 110/60; TEMP 98
--- NOTE | 2020-08-11 11:27 | RAD REPORT ---
EXAM DESCRIPTION: CT - Abdomen Pelvis W Contrast - 08/11/2020 7:01 am CLINICAL HISTORY: Nausea, vomiting, diarrhea and abdominal cramping x1 day TECHNIQUE: Contiguous axial images obtained through the abdomen and pelvis following the uneventful administration of IV contrast. Coronal and sagittal reformatted images were provided. This exam was performed according to our departmental dose-optimization program, which includes autom ated exposure control, adjustment of the mA and/or kV according to patient size and/or use of iterati ve reconstruction technique. COMPARISON: None available for comparison. FINDINGS: Lung bases: Clear Liver: Unremarkable Gallbladder and biliary system: Prior cholecystectomy. Pancreas: Unremarkable Spleen: Unremarkable Adrenals: Unremarkable Kidneys: Normal renal cortical enhancement. No calculi. No hydronephrosis. Bowel: Small and large bowel air-fluid levels diffusely. No obstruction. No appreciable mucosal thick ening. Appendix: Normal caliber appendix. No findings to suggest acute appendicitis. Urinary bladder: Unremarkable Reproductive: Intrauterine device in place. No adnexal mass. Lymph nodes: No pathologically enlarged lymph nodes. Peritoneum: No focal fluid collection. No free air. Vessels: No abdominal aortic aneurysm. Abdominal wall: Tiny fat-containing umbilical hernia. Bones: Unremarkable IMPRESSION: Nonspecific air-fluid levels present within the small and large bowel. This can be seen in the clinical setting of diarrhea. No appreciable mucosal thickening. Electronically signed by: Lorne Flaherty MD 08/10/2020 10:29 PM CDT Due to temporary technical issues with the PACS/Fluency reporting system, reports are being signed by the in house radiologist without review as a courtesy to ensure prompt reporting. The interpreting r adiologist is fully responsible for the content of the report.
== END 2020-08-10 23:58 | disposition home or self-care (01) ==
LOC: ER 20:32
DX: N39.0 Urinary tract infection, site not specified (principal); E86.0 Dehydration; R19.7 Diarrhea, unspecified; Z20.822 Contact with and (suspected) exposure to COVID-19
CPT/HCPCS: 0240U; 36415; 74177; 80048; 80076; 81003; 81015; 81025; 83690; 85025; 87086; 87088; 96361; 96365; 96375; 99284; J0696; J2405; J7030; Q9967